=== PATIENT | female | born 1960 ===

== ENCOUNTER 2018-02-20 00:16 | Outpatient (CLI) | payer BC | END 2018-02-20 23:59 | disposition home or self-care (01) | LOC: DIABETIC 00:16 | PROVIDERS: ATTEND Surgery | DX: E66.01 Morbid (severe) obesity due to excess calories (principal); M25.572 Pain in left ankle and joints of left foot; M25.571 Pain in right ankle and joints of right foot | CPT/HCPCS: 97802 ==

== ENCOUNTER 2018-03-19 02:45 | Outpatient (CLI) | payer BC | END 2018-03-19 23:59 | disposition home or self-care (01) | LOC: DIABETIC 02:45 | PROVIDERS: ATTEND Surgery | DX: E66.01 Morbid (severe) obesity due to excess calories (principal); M25.572 Pain in left ankle and joints of left foot | CPT/HCPCS: 97802 ==

== ENCOUNTER 2018-04-16 02:57 | Outpatient (CLI) | payer BC | END 2018-04-16 23:59 | disposition home or self-care (01) | LOC: DIABETIC 02:57 | PROVIDERS: ATTEND Surgery | DX: E66.01 Morbid (severe) obesity due to excess calories (principal) | CPT/HCPCS: 97802 ==

== ENCOUNTER 2018-05-15 00:16 | Outpatient (CLI) | payer BC | END 2018-05-15 23:59 | disposition home or self-care (01) | LOC: DIABETIC 00:16 | PROVIDERS: ATTEND Surgery | DX: E66.01 Morbid (severe) obesity due to excess calories (principal); M25.579 Pain in unspecified ankle and joints of unspecified foot | CPT/HCPCS: 97802 ==

== ENCOUNTER 2018-08-16 00:10 | Outpatient (CLI) | payer BC | END 2018-08-16 23:59 | disposition home or self-care (01) | LOC: DIABETIC 00:10 | PROVIDERS: ATTEND Surgery | DX: M25.571 Pain in right ankle and joints of right foot (principal); M25.572 Pain in left ankle and joints of left foot | CPT/HCPCS: 97802 ==

== ENCOUNTER 2018-10-18 01:27 | Outpatient (CLI) | payer BC | END 2018-10-18 23:59 | disposition home or self-care (01) | LOC: DIABETIC 01:27 | PROVIDERS: ATTEND Nurse Practitioner Family | DX: Z48.815 Encounter for surgical aftercare following surgery on the digestive system (principal); Z98.84 Bariatric surgery status | CPT/HCPCS: 97802 ==

== ENCOUNTER 2019-01-29 12:57 | Outpatient (CLI) | payer BC | END 2019-01-29 23:59 | disposition home or self-care (01) | LOC: DIABETIC 12:57 | PROVIDERS: ATTEND Nurse Practitioner Family | DX: Z48.815 Encounter for surgical aftercare following surgery on the digestive system (principal); Z98.84 Bariatric surgery status | CPT/HCPCS: 97802 ==